=== PATIENT | female | born 1995 | race Caucasian/White ===

== ENCOUNTER 2024-08-29 00:27 | Emergency (ER) | payer OTHER ==
[~2024-08-29] VITALS: Ht 167.6 cm; Wt 115.7 kg
[2024-08-29] MEDS ORDERED: ONDANSETRON 4 MG TAB.RAPDIS ONE (01:00)
[2024-08-29] MEDS: ONDANSETRON 4 MG TAB.RAPDIS SL ONE (01:00)
[2024-08-29 01:55] VITALS: BP 129/75; TEMP 98.1; O2SAT 99
== END 2024-08-29 01:55 | disposition home or self-care (01) ==
LOC: ER 00:41
DX: S39.012A Strain of muscle, fascia and tendon of lower back, initial encounter (principal); S09.90XA Unspecified injury of head, initial encounter; S40.012A Contusion of left shoulder, initial encounter; W01.0XXA Fall on same level from slipping, tripping and stumbling without subsequent striking against object, initial encounter; Y93.89 Activity, other specified; Y92.89 Other specified places as the place of occurrence of the external cause; Y99.8 Other external cause status
CPT/HCPCS: 99284; 70450; 73030; 72131; Q0162